=== PATIENT | male | born 1980 | race Caucasian/White ===

== ENCOUNTER 2023-01-27 22:50 | Emergency (ER) | payer BC ==
[~2023-01-27] VITALS: Ht 195.6 cm; Wt 88.5 kg
[2023-01-27] MEDS ORDERED: SODIUM BICARBONATE 4.2 % (NEUT) 5 ML VIAL ONE (23:51)
[2023-01-27] MEDS ORDERED: LIDOCAINE 1%-EPI 1:100,000 20 ML VIAL ONE (23:51)
[2023-01-27] MEDS: LIDOCAINE 1%-EPI 1:100,000 20 ML VIAL IJ ONE (23:54)
[2023-01-27] MEDS: SODIUM BICARBONATE 4.2 % (NEUT) 5 ML VIAL TP ONE (23:54)
[2023-01-27] MEDS: CEphaleXIN 500 MG CAPSULE PO ONE (23:56)
[2023-01-27] MEDS ORDERED: CEphaleXIN 500 MG CAPSULE ONE (23:56)
[2023-01-27] MEDS ORDERED: TDAP DIPH,PERTUSS,TET VAC/PF 0.5 ML DISP.SYRIN IM ONE (23:56)
[2023-01-27] MEDS: TDAP DIPH,PERTUSS,TET VAC/PF 0.5 ML DISP.SYRIN IM ONE (23:57)
[2023-01-28] MEDS ORDERED: CEPH500T PO (00:20)
[2023-01-28 00:30] VITALS: BP 122/75
--- NOTE | 2023-01-28 00:30 | NUR ---
Patient discharged to home in stable condition. Written and verbal after care instructions given. Patient verbalizes understanding of instructions. Stressed follow up or return to ER for worsening s/s. Patient walked out with steady gait.
== END 2023-01-28 00:30 | disposition home or self-care (01) ==
LOC: ER 22:50
DX: S01.81XA Laceration without foreign body of other part of head, initial encounter (principal); Z79.899 Other long term (current) drug therapy; W51.XXXA Accidental striking against or bumped into by another person, initial encounter; Y93.67 Activity, basketball; Y92.89 Other specified places as the place of occurrence of the external cause; Y99.8 Other external cause status
CPT/HCPCS: 99284; 12013; 90715; 90471; J3490 ×2; A4663